=== PATIENT | female | born 1990 | race American Indian/Alaskan Native ===

== ENCOUNTER 2019-09-25 07:47 | Emergency (ER) | payer OTHER ==
[2019-09-25 07:55] VITALS: BP 116/69
[2019-09-25] MEDS ORDERED: IBUPROFEN 800 MG TAB PO ONE (08:54)
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
== END 2019-09-25 09:51 | disposition home or self-care (01) ==
LOC: ED 07:47
DX: S46.911A Strain of unspecified muscle, fascia and tendon at shoulder and upper arm level, right arm, initial encounter (principal); S86.911A Strain of unspecified muscle(s) and tendon(s) at lower leg level, right leg, initial encounter; Z98.890 Other specified postprocedural states; V49.59XA Passenger injured in collision with other motor vehicles in traffic accident, initial encounter; Y93.89 Activity, other specified; Y92.410 Unspecified street and highway as the place of occurrence of the external cause; Y99.8 Other external cause status